=== PATIENT | male | born 1965 | race Caucasian/White ===

== ENCOUNTER 2024-01-01 05:04 | Emergency (ER) | payer OTHER, SELFPAY ==
[2024-01-01 05:05] VITALS: BP 147/96
[2024-01-01 05:23] VITALS: BMI 42.7
[2024-01-01] MEDS: NSS 1000 IV (05:38)
[2024-01-01] MEDS: TORADOL 30 MG IV (05:38)
[2024-01-01 05:41] LABS: % Basophils 0.4 % (0-2); % Eosinophils 0.9 % (0-6); % Immature Granulocytes 0.3 % (0-0.5); % Lymphocytes 18.3 % (20.5-51.1); % Monocytes 6.8 % (1.7-9.3); % Neutrophils 73.3 % (42.2-75.2); Absolute Basophils 0.1 10^3/uL (0-0.2); Absolute Eosinophils 0.1 10^3/uL (0-0.7); Absolute Lymphocytes 2.7 10^3/uL (1.2-3.4); Absolute Neutrophils 10.6 10^3/uL (1.4-6.5); Hematocrit 45.1 % (39.0-52.0); Hemoglobin 15.8 g/dL (13.0-18.0); Mean Corpuscular Hgb 28.2 pg (27.0-31.0); Mean Corpuscular Volume 80.5 fL (80.0-94.0); Mean Platelet Volume 10.7 fL (7.4-10.4); Nucleated Red Blood Cells % 0 % (-); Platelet Count 239 10^3/uL (130-400); Red Cell Dist. Width 13.9 % (11.5-14.5); White Blood Cell Count 14.5 10^3/uL (4.8-10.8)
[2024-01-01 05:42] LABS: Urine Albumin Negative (Neg - Trace); Urine Bilirubin Negative (Negative); Urine Character Clear (Clear); Urine Color Yellow; Urine Glucose Negative (Negative); Urine Ketone Negative (Negative); Urine Leukocyte Trace (Negative); Urine Nitrite Negative (Negative); Urine Occult Blood Negative (Negative); Urine Urobilinogen Negative (Neg - 1+)
[2024-01-01 05:58] LABS: ALT (SGPT) 25 U/L (0-50); AST (SGOT) 26 U/L (17-59); Albumin 4.7 g/dl (3.5-5.0); Alkaline Phosphatase 88 U/L (38-126); Blood Urea Nitrogen 16 mg/dl (9-20); Calcium 9.4 mg/dl (8.4-10.2); Carbon Dioxide 26 mmol/L (22-30); Chloride 103 mmol/L (98-107); Estimated Creatinine Clearance 111 ml/min; Glucose 108 mg/dl (70-99); Lipase 70 U/L (23-300); Potassium 3.6 mmol/L (3.5-5.1); Sodium 137 mmol/L (135-145); Total Bilirubin 0.7 mg/dl (0.2-1.3); Total Protein 7.2 g/dl (6.3-8.2); eGFR > 60.00
[2024-01-01 07:17] LABS: Urine Bacteria Few (Negative); Urine Squamous Cell 0-2 /LPF (Few); Urine White Cell 16-20 /HPF (0-5)
[2024-01-01 07:25] VITALS: BP 133/75
[2024-01-01] MEDS: DILAUDID 1 MG IV (07:32)
--- NOTE | 2024-01-01 07:57 | ED.GENMED ---
History of Present Illness
General
Chief Complaint: Flank Pain
Source: patient and spouse
Exam Limitations: none
Time Seen by Provider: 01/01/24 06:35
Travel History
Have you had any contact with someone who has COVID-19?: No
Do you have any symptoms of coronavirus? Fever > 100 degrees, chills, cough, shortness of breath, sore throat, loss of taste or smell, muscle aches, or headache?: No
History of Present Illness
History of Present Illness:
This is a 58yo male who presents with R flank pain. pt states that sx's started last night at 6pm. he states he is pretty sure he has a kidney stone. no fevers. No dysuria. No hematuria
Past History
Past History
ED Past Medical History: GERD and Other (Kidney stones, obstructive sleep apnea)
ED Past Surgical History: Urological
Patient has exhibited threatening behavior?: No
PSI?: No
Social History
Tobacco: Non-smoker
Alcohol: Occasional
Drug: None
Personal:
Living: with family
Employment: Employed
Family History
Family History: Other
Phy Exam
Physical Exam
Physical Exam:
CONSTITUTIONAL Patient alert and oriented to person, place and time. Well-appearing. Vital signs reviewed.
HEAD atraumatic, normocephalic.
EYES eyelids normal to inspection, Extraocular muscles intact, Conjunctiva normal, Sclera normal.
NECK normal range of motion, Trachea midline, no jugular venous distention.
RESPIRATORY CHEST No respiratory distress noted, Chest expansion equal
ABDOMEN abdomen nontender, Bowel sounds normal. No distention.
BACK normal inspection, no obvious deformities
UPPER EXTREMITY range of motion normal, Motor strength normal, no cyanosis, no edema.
LOWER EXTREMITY range of motion normal, Motor strength normal, no cyanosis, no edema.
NEURO Speech normal, No focal motor deficits, Tryon coma scale 15, Memory normal, Cranial Nerves intact to screening exam.
SKIN skin warm, dry, and normal in color.
Course
Orders/Labs/Results
Orders:
Orders
01/01/24 05:19
IV Insert/Care/Rem.- Treatment PRN
01/01/24 05:30
Complete Blood Count/With Diff Urgent
Comprehensive Metabolic Panel Urgent
Lipase Urgent
Urinalysis Reflex To Culture Urgent
Date Specimen was Collected: 01/01/24
Time Specimen was Collected: 05:19
Urine Microscopic Reflex Cult Urgent
Urine Culture Urgent
DINA Source: U
Specimen Description:
Date Specimen was Collected: 01/01/24
Time Specimen was Collected: 05:19
01/01/24 05:34
Ketorolac [Toradol] 30 mg .ROUTE .STK-MED ONE
01/01/24 05:35
Ketorolac [Toradol] 30 mg IV NOW STA
01/01/24 05:36
0.9% Sodium Chloride 1000 ml [Nss] 1,000 ml IV BOLUS
01/01/24 07:23
CT Abd/pel Without Iv Or Oral Stat
Comment:
Reason For Exam: R flank pain
HYDROmorphone [Dilaudid] 1 mg IV NOW STA
01/01/24 10:17
Cefuroxime Axetil [Ceftin] 500 mg PO NOW STA
Abnormal Lab Results
01/01/24
05:30
WBC 14.5 H 10^3/uL
(4.8-10.8)
MPV 10.7 H fL
(7.4-10.4)
Absolute Neuts (auto) 10.6 H 10^3/uL
(1.4-6.5)
Absolute Monos (auto) 1.0 H 10^3/uL
(0.1-0.6)
Lymphocytes % 18.3 L %
(20.5-51.1)
Glucose 108 H mg/dl
(70-99)
Leukocyte Esterase Rfl Trace A
(Negative)
Urine RBC 3-6 A /HPF
(0-2)
Urine WBC (Reflex) 16-20 A /HPF
(0-5)
Urine Bacteria (Reflex) Few A
(Negative)
01/01/24 05:30
01/01/24 05:30
Vital Signs
Initial and Last Documented VS:
Initial Vital Signs
Temp Pulse Resp BP Pulse Ox
98.1 F 115 18 147/96 96
01/01/24 05:05 01/01/24 05:05 01/01/24 05:05 01/01/24 05:05 01/01/24 05:05
Last Documented Vital Signs
Temp Pulse Resp BP Pulse Ox
98.1 F 79 20 129/85 99
01/01/24 05:05 01/01/24 09:00 01/01/24 09:00 01/01/24 09:00 01/01/24 09:00
MDM/Problems Addressed
MDM/Problems Addressed:
Renal colic, ureteral obstruction
*Radiology
Radiology exam reviewed: preliminary read by ED provider (Right-sided obstructing stone) and radiology read reviewed
*Pulse Oximetry
Patient hypoxic: no
*Critical Care Note
Total Time (30-74mins, 75-104mins- exclusive of procedures): Not Applicable
Data Reviewed
Source: patient and spouse
Patient Management
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
Escalation/DeEscalation of care consider admission/obs:
Case discussed urology feels that outpatient management is reasonable. Agrees with antibiotics. Patient was hoping to have procedure today as he has to travel on Tuesday. However, pain is controlled. He is afebrile. Creatinine is normal.
Will treat with antibiotics and outpatient follow-up with urology
ED Attending Note
-
Portions of this chart may have been created with voice recognition software.� Occasional wrong word or��sound alike� substitutions may have occurred due to the inherent limitations of voice recognition software.
Discharge Plan
Departure
Patient Disposition: Home (Routine Discharge)
Date of Disposition: 01/01/24
Time of Disposition: 10:19
Patient with high blood pressure during this ER visit?: No
Discharge Problem:
Kidney stone
Instructions: Kidney Stones (DC), How to Strain Your Urine, Narcotic Pain Medication
Prescriptions:
New
hydrocodone-acetaminophen 5-325 mg tablet
2 tab PO Q4H PRN (Reason: Pain) Qty: 15 0RF
cefuroxime axetil 500 mg tablet
500 mg PO Q12H 7 Days Qty: 14 0RF
tamsulosin [Flomax] 0.4 mg capsule
0.4 mg PO DAILY Qty: 30 0RF
No Action
metformin 500 mg Tablet
500 mg PO DAILY
amiloride-hydrochlorothiazide 5-50 mg Tablet
1 tab PO BID
cholecalciferol (vitamin D3) [Vitamin D3] 50 mcg (2,000 unit) Capsule
50 mcg PO DAILY
metformin 500 mg Tablet
1,000 mg PO QPM
metoprolol succinate 50 mg tablet extended release 24 hr
50 mg PO DAILY
potassium citrate 10 mEq (1,080 mg) tablet extended release
10 meq PO BID
allopurinol 300 mg tablet
300 mg PO DAILY
phenazopyridine [Pyridium] 100 mg tablet
100 mg PO TID Qty: 60 0RF
tramadol 50 mg tablet
50 mg PO Q8H PRN (Reason: pain) Qty: 30 0RF
tamsulosin 0.4 mg capsule
0.4 mg PO DAILY Qty: 30 0RF
cefuroxime axetil 500 mg tablet
500 mg PO BID Qty: 14 0RF
cefdinir 300 mg capsule
300 mg PO BID Qty: 13 0RF
Referrals:
Alvaro Moreno DO [Family Provider] -
Activity Restrictions/Additional Instructions:
Please see urology in follow-up in the next 3 days. Return for fevers, intractable vomiting, intractable pain or any other concerns.
Interventions
Interventions:
*Risk Screen - Suicide Last Done: 01/01/24 05:23
*General Assessment Last Done: 01/01/24 05:23
*Neglect/Abuse Screening Last Done: 01/01/24 05:23
ED- Fall Risk Assessment Last Done: 01/01/24 06:13
*ED COVID-19 Vaccine History Last Done: 01/01/24 05:23
LX-Zytiwd-Wbtfklpriw Assessment Last Done: 01/01/24 06:13
ED-Male Genitourinary Assessment Last Done: 01/01/24 06:13
[2024-01-01 09:00] VITALS: BP 129/85
[2024-01-01 10:00] VITALS: BP 134/76
[2024-01-01] MEDS: CEFTIN 500 MG PO (10:37)
== END 2024-01-01 10:42 | disposition home or self-care (01) ==
LOC: EMR 05:04
PROVIDERS: Student in an Organized Health Care Education/Training Program; EMERGENCY PHYSICIAN Emergency Medicine; FAMILY PHYSICIAN Family Medicine
DX: R10.9 Unspecified abdominal pain (principal); K21.9 Gastro-esophageal reflux disease without esophagitis; G47.33 Obstructive sleep apnea (adult) (pediatric); Z87.442 Personal history of urinary calculi
CPT/HCPCS: 99284; 96374; 96375; 96361; 74176; 80053; 81003; 81015; 83690; 85025; 87086

== ENCOUNTER 2024-01-13 06:23 | Day surgery (SDC) | payer OTHER, SELFPAY ==
[2024-01-13 14:10] VITALS: BP 141/79; BMI 41.4
[2024-01-13] MEDS: NORMOSOL-R 1000 IV (14:15)
[2024-01-13 14:20] LABS: Glucose - Point of Care 100 mg/dl (70-99)
[2024-01-13 14:34] VITALS: BMI 41.4
[2024-01-13] MEDS: Pyridium 200 MG PO (14:46)
[2024-01-13 16:10] VITALS: BP 133/75; BP 141/79
[2024-01-13 16:15] VITALS: BP 129/77
[2024-01-13 16:39] VITALS: BP 123/71
[2024-01-13] MEDS: DETROL LA 4 MG PO (16:54)
[2024-01-13 16:56] VITALS: BP 129/72
[2024-01-13 17:15] VITALS: BP 140/89
[2024-01-18 19:09] LABS: Stone Analysis Mass 52 mg
== END 2024-01-13 17:22 | disposition home or self-care (01) ==
LOC: SDS 06:23
PROVIDERS: ATTENDING PHYSICIAN Surgery
DX: C67.9 Malignant neoplasm of bladder, unspecified (principal); N13.2 Hydronephrosis with renal and ureteral calculous obstruction; N32.3 Diverticulum of bladder; Z87.442 Personal history of urinary calculi
CPT/HCPCS: 52356; 52234; 88307; 74018; 76000; 82365; 82962; 88341; 88342; 93005; A4300; C1758; C1769; C1894

== ENCOUNTER → 2024-01-24 08:39 | Outpatient (REF) | payer OTHER, SELFPAY | LOC: RAD 08:39 | PROVIDERS: ATTENDING PHYSICIAN Surgery; FAMILY PHYSICIAN Family Medicine | DX: C67.9 Malignant neoplasm of bladder, unspecified (principal) | CPT/HCPCS: 74178; Q9967 ==

== ENCOUNTER → 2024-02-03 06:20 | Day surgery (SDC) | payer OTHER, SELFPAY | LOC: GI 06:20 | PROVIDERS: ATTENDING PHYSICIAN Internal Medicine Gastroenterology | DX: Z12.11 Encounter for screening for malignant neoplasm of colon (principal); D12.3 Benign neoplasm of transverse colon; K64.8 Other hemorrhoids | CPT/HCPCS: 45385; 88305 ==

== ENCOUNTER → 2024-02-29 10:27 | Outpatient (REF) | payer OTHER, SELFPAY | LOC: RAD 10:27 | PROVIDERS: ATTENDING PHYSICIAN Surgery; FAMILY PHYSICIAN Family Medicine; REFERRING PHYSICIAN Physician Assistant Medical | DX: N26.1 Atrophy of kidney (terminal) (principal) | CPT/HCPCS: 78707; A9539 ==

== ENCOUNTER → 2024-09-01 08:46 | Outpatient (REF) | payer OTHER, SELFPAY | LOC: RCS 08:46 | PROVIDERS: ATTENDING PHYSICIAN Internal Medicine Cardiovascular Disease; FAMILY PHYSICIAN Family Medicine | DX: I49.3 Ventricular premature depolarization (principal) | CPT/HCPCS: 93225; 93226 ==

== ENCOUNTER → 2024-09-17 07:37 | Outpatient (REF) | payer OTHER, SELFPAY | LOC: RAD 07:37 | PROVIDERS: ATTENDING PHYSICIAN Surgery | DX: N20.0 Calculus of kidney (principal) | CPT/HCPCS: 74018 ==

== ENCOUNTER → 2024-10-23 08:19 | Outpatient (REF) | payer OTHER, SELFPAY | LOC: HWRCS 08:19 | PROVIDERS: ATTENDING PHYSICIAN Internal Medicine Cardiovascular Disease; FAMILY PHYSICIAN Family Medicine | DX: I49.3 Ventricular premature depolarization (principal); I10 Essential (primary) hypertension | CPT/HCPCS: 93306 ==

== ENCOUNTER → 2024-10-30 07:48 | Outpatient (REF) | payer OTHER, SELFPAY | LOC: HWRAD 07:48 | PROVIDERS: ATTENDING PHYSICIAN Physician Assistant; FAMILY PHYSICIAN Family Medicine | DX: N20.0 Calculus of kidney (principal) | CPT/HCPCS: 76775 ==

== ENCOUNTER → 2025-02-25 08:35 | Outpatient (REF) | payer OTHER, SELFPAY | LOC: RAD 08:35 | PROVIDERS: ATTENDING PHYSICIAN Surgery; FAMILY PHYSICIAN Family Medicine; OTHER PHYSICIAN Surgery | DX: C67.0 Malignant neoplasm of trigone of bladder (principal) | CPT/HCPCS: 74178; Q9967 ==

== ENCOUNTER 2025-06-14 12:34 | Inpatient (IN) | payer OTHER, SELFPAY ==
[2025-06-14] VITALS (17 sets, daily range): BP systolic 111–147; BP diastolic 67–92
[2025-06-14 08:02] LABS: Urine Character Clear (Clear)
[2025-06-14 08:39] LABS: Urine Squamous Cell 16-20 /LPF (Few)
[2025-06-14 08:42] LABS: Urine White Cell 30-40 /HPF (0-5)
--- NOTE | 2025-06-14 09:01 | ED.GENMED ---
History of Present Illness
<Rolanda Cho MD, Resident - Last Filed: 06/14/25 10:51>
General
Chief Complaint: Flank Pain
Source: patient
Time Seen by Provider: 06/14/25 08:48
History of Present Illness
History of Present Illness:
Mr. Stewart is a 59-year-old male with bladder cancer (followed at [facility]), hypertension, prediabetes, and history of numerous obstructive renal stones s/p multiple stents and lithotripsies (follows with Dr. Zavala) who presents with 18 hours of
04/25 right-sided flank and back pain. Him and his were at the [facility] for vacation when he developed right-sided flank pain around 3 PM yesterday. He states is the same pain that he had each time he has a renal stone. Of note, CT A/P from February
2024 showed bilateral nonobstructing renal calculi measuring up to 5 mm in the superior pole of the right kidney and 2 mm in the inferior pole of the left kidney. Mr. Stewart has stayed well-hydrated during this time and taken some tramadol for his
pain without relief. He denies nausea/vomiting, fevers, chills, urinary symptoms (hematuria, dysuria, incontinence, obstruction), or any trauma to the area. He also notes that his right kidney function is severely diminished (about 25%) given
multiple stents and damage to that kidney from his past medical history.
<Segun Adan, DO - Last Filed: 06/14/25 13:32>
General
Exam Limitations: none
Nursing documentation reviewed up to this point in time: agreed with
Past History
<Rolanda Cho MD, Resident - Last Filed: 06/14/25 10:51>
Past History
ED Past Medical History: GERD and Other (Kidney stones, obstructive sleep apnea)
ED Past Surgical History: Urological
Patient has exhibited threatening behavior?: No
PSI?: No
Social History
Tobacco: Non-smoker
Alcohol: Occasional
Drug: None
Personal:
Living: with family
Employment: Employed
Family History
Family History: Other
Phy Exam
<Rolanda Cho MD, Resident - Last Filed: 06/14/25 10:51>
General Physical Exam
General Presentation: well appearing and mild distress
General Skin: warm and dry
General Habitus: normal
General Mental: alert
ENT Exam
ENT Exam: EOMI
Cardiovascular Exam
Cardiovascular Exam: regular rate/rhythm and no edema
Pulmonary Exam
Pulmonary Exam: lungs clear and no respiratory distress
Gastrointestinal Exam
Gastrointestinal Exam: normal bowel sounds, non tender, soft, non distended and cva tenderness (Right-sided)
Skin Exam
Skin Exam: normal color and warm/dry
Course
<Rolanda Cho MD, Resident - Last Filed: 06/14/25 10:51>
Orders/Labs/Results
Orders:
Orders
06/14/25 07:31
Urinalysis Reflex To Culture Urgent
Date Specimen was Collected: 06/14/25
Time Specimen was Collected: 07:29
Urine Microscopic Reflex Cult Urgent
Urine Culture Urgent
DINA Source: U
Specimen Description:
Date Specimen was Collected: 06/14/25
Time Specimen was Collected: 07:29
06/14/25 09:14
HYDROmorphone [Dilaudid] 1 mg IV NOW STA
Ondansetron Injectable [Zofran] 4 mg IV NOW STA
06/14/25 09:15
CT Abd/pel Without Iv Or Oral Urgent
Comment:
Reason For Exam: right sided flank pain
06/14/25 09:16
0.9% Sodium Chloride 500 ml [Nss] 500 ml IV BOLUS
06/14/25 09:45
Complete Blood Count/With Diff Urgent
Comprehensive Metabolic Panel Urgent
Glycohemoglobin (HgbA1c) Urgent
06/14/25 Lunch
NPO
Allow oral meds: Yes
Allow clear liquids: No
06/14/25 10:06
Ondansetron Injectable [Zofran] 4 mg IV NOW STA
06/14/25 11:34
HYDROmorphone [Dilaudid] 1 mg IV NOW STA
06/14/25 12:00
CefTRIAXone [Rocephin] 1,000 mg IV Q24H
06/14/25 12:07
UROLOGY CONSULT Routine
Consulting Provider: Attila Kan
Was physician already notified: Yes
06/14/25 12:08
Admit/Transfer Patient As Directed
Co-Sign Provider:
Level of Care: Inpatient admission
Assign to:: Telemetry
Physician / Group: maxine lovelace
Diagnosis: UTI,right flank pain with right ureteralvesicle obstruction
Reason for Telemetry: Arrhythmia
Date to Stop Telemetry: 06/17/25
Time to Stop Telemetry: 11:00
Reason for Hospitalization: UTI,right flank pain with right ureteralvesicle obstruction
Expected length of stay greater than two midnights?: Yes
ELOS- Estimated Length of Stay in days: 3
I certify the patient meets the requirements for IP care: Yes
Nursing to Place Non Medication Order As Directed
Physician Order: NOTIFY MD WHEN MED REC DONE
Above order entered?: Yes
06/14/25 12:14
PRN Pain Medication Management As Directed
May give lesser potent ordered pain med per pt: Yes
preference::
Protocol:: Medication orders for pain may be administered in a
manner that supports deferring to patient preference
when the pt is:
- Requesting an ordered lesser potent pain medication.
Least to most potent pain medications are defined
as: acetaminophen < NSAID < tramadol < opioids
(morphine, oxycodone, hydromorphone).
- Requesting a lesser dose of the same medication IF
ORDERED.
- Requesting a less intrusive route of administration
if both routes are prescribed by the provider (PO <
IV).
06/14/25 12:15
Code Status As Directed
Resuscitation Status: Full Code
06/14/25 12:18
Add On- LAB Routine
Tests Added?: a1c
EKG [Electrocardiogram (*1)] Urgent
Reason for Study: PreOp
Dextrose 50%-Water [Dextrose 50% Syringe] 12.5 grams IV [id number] PRN
Glucagon [GlucaGen] 1 mg IM PRN PRN
06/14/25 12:20
Trimethobenzamide [Tigan] 200 mg IM NOW STA
Bedside Glucose Monitoring As Directed
Frequency: AC&HS
Additional Instructions:: Change to q6h if pt on TPN, tube feeding or not eating
06/14/25 16:30
Insulin Aspart Corrective Low [Novolog Flexpen-Low Resistance] See Protocol SC AC
06/17/25 11:00
DC Protocol for Telemetry ONCE
Abnormal Lab Results
06/14/25 06/14/25
07:31 09:45
Absolute Neuts (auto) 7.2 H 10^3/uL
(1.4-6.5)
Lymphocytes % 18.6 L %
(20.5-51.1)
Glucose 105 H mg/dl
(70-99)
Ur Occult Blood Reflex 3+ A
(Negative)
Leukocyte Esterase Rfl 3+ A
(Negative)
Urine RBC 3-6 A /HPF
(0-2)
Urine WBC (Reflex) 30-40 A /HPF
(0-5)
Urine Bacteria (Reflex) Many A
(Negative)
Urine Albumin (Reflex) 2+ A
(Neg - Trace)
06/14/25 09:45
06/14/25 09:45
Vital Signs
Initial and Last Documented VS:
Initial Vital Signs
Temp Pulse Resp BP Pulse Ox
98.0 F 61 18 144/92 98
06/14/25 07:23 06/14/25 07:23 06/14/25 07:23 06/14/25 07:23 06/14/25 07:23
Last Documented Vital Signs
Temp Pulse Resp BP Pulse Ox
98.0 F 61 18 144/92 98
06/14/25 07:23 06/14/25 07:23 06/14/25 07:23 06/14/25 07:23 06/14/25 09:03
<Segun Adan, DO - Last Filed: 06/14/25 13:32>
Orders/Labs/Results
Orders:
Orders
06/14/25 07:31
Urinalysis Reflex To Culture Urgent
Date Specimen was Collected: 06/14/25
Time Specimen was Collected: 07:29
Urine Microscopic Reflex Cult Urgent
Urine Culture Urgent
DINA Source: U
Specimen Description:
Date Specimen was Collected: 06/14/25
Time Specimen was Collected: 07:29
06/14/25 09:14
HYDROmorphone [Dilaudid] 1 mg IV NOW STA
Ondansetron Injectable [Zofran] 4 mg IV NOW STA
06/14/25 09:15
CT Abd/pel Without Iv Or Oral Urgent
Comment:
Reason For Exam: right sided flank pain
06/14/25 09:16
0.9% Sodium Chloride 500 ml [Nss] 500 ml IV BOLUS
06/14/25 09:45
Complete Blood Count/With Diff Urgent
Comprehensive Metabolic Panel Urgent
Glycohemoglobin (HgbA1c) Urgent
06/14/25 Lunch
NPO
Allow oral meds: Yes
Allow clear liquids: No
06/14/25 10:06
Ondansetron Injectable [Zofran] 4 mg IV NOW STA
06/14/25 11:34
HYDROmorphone [Dilaudid] 1 mg IV NOW STA
06/14/25 12:00
CefTRIAXone [Rocephin] 1,000 mg IV Q24H
06/14/25 12:07
UROLOGY CONSULT Routine
Consulting Provider: Attila Kan
Was physician already notified: Yes
06/14/25 12:08
Admit/Transfer Patient As Directed
Co-Sign Provider:
Level of Care: Inpatient admission
Assign to:: Telemetry
Physician / Group: maxine lovelace
Diagnosis: UTI,right flank pain with right ureteralvesicle obstruction
Reason for Telemetry: Arrhythmia
Date to Stop Telemetry: 06/17/25
Time to Stop Telemetry: 11:00
Reason for Hospitalization: UTI,right flank pain with right ureteralvesicle obstruction
Expected length of stay greater than two midnights?: Yes
ELOS- Estimated Length of Stay in days: 3
I certify the patient meets the requirements for IP care: Yes
Nursing to Place Non Medication Order As Directed
Physician Order: NOTIFY MD WHEN MED REC DONE
Above order entered?: Yes
06/14/25 12:14
PRN Pain Medication Management As Directed
May give lesser potent ordered pain med per pt: Yes
preference::
Protocol:: Medication orders for pain may be administered in a
manner that supports deferring to patient preference
when the pt is:
- Requesting an ordered lesser potent pain medication.
Least to most potent pain medications are defined
as: acetaminophen < NSAID < tramadol < opioids
(morphine, oxycodone, hydromorphone).
- Requesting a lesser dose of the same medication IF
ORDERED.
- Requesting a less intrusive route of administration
if both routes are prescribed by the provider (PO <
IV).
06/14/25 12:15
Code Status As Directed
Resuscitation Status: Full Code
06/14/25 12:18
Add On- LAB Routine
Tests Added?: a1c
EKG [Electrocardiogram (*1)] Urgent
Reason for Study: PreOp
Dextrose 50%-Water [Dextrose 50% Syringe] 12.5 grams IV [id number] PRN
Glucagon [GlucaGen] 1 mg IM PRN PRN
06/14/25 12:20
Trimethobenzamide [Tigan] 200 mg IM NOW STA
Bedside Glucose Monitoring As Directed
Frequency: AC&HS
Additional Instructions:: Change to q6h if pt on TPN, tube feeding or not eating
06/14/25 16:30
Insulin Aspart Corrective Low [Novolog Flexpen-Low Resistance] See Protocol SC AC
06/17/25 11:00
DC Protocol for Telemetry ONCE
Abnormal Lab Results
06/14/25 06/14/25
07:31 09:45
Absolute Neuts (auto) 7.2 H 10^3/uL
(1.4-6.5)
Lymphocytes % 18.6 L %
(20.5-51.1)
Glucose 105 H mg/dl
(70-99)
Ur Occult Blood Reflex 3+ A
(Negative)
Leukocyte Esterase Rfl 3+ A
(Negative)
Urine RBC 3-6 A /HPF
(0-2)
Urine WBC (Reflex) 30-40 A /HPF
(0-5)
Urine Bacteria (Reflex) Many A
(Negative)
Urine Albumin (Reflex) 2+ A
(Neg - Trace)
06/14/25 09:45
06/14/25 09:45
Vital Signs
Initial and Last Documented VS:
Initial Vital Signs
Temp Pulse Resp BP Pulse Ox
98.0 F 61 18 144/92 98
06/14/25 07:23 06/14/25 07:23 06/14/25 07:23 06/14/25 07:23 06/14/25 07:23
Last Documented Vital Signs
Temp Pulse Resp BP Pulse Ox
98.0 F 61 18 144/92 98
06/14/25 07:23 06/14/25 07:23 06/14/25 07:23 06/14/25 07:23 06/14/25 09:03
<Rolanda Cho MD, Resident - Last Filed: 06/14/25 10:51>
MDM/Problems Addressed
MDM/Problems Addressed:
Mr. Stewart is a 59-year-old male with bladder cancer (followed at [facility]), hypertension, prediabetes, and history of numerous obstructive renal stones s/p multiple stents and lithotripsies (follows with Dr. Zavala) who presents with 18 hours of
710 right-sided flank and back pain.
#Right-sided flank and back pain
#History of obstructive renal stones
02/25/2025 CT A/P showed bilateral nonobstructing renal calculi measuring up to 5 mm in the superior pole of the right kidney and 2 mm in the inferior pole the left kidney. His current pain is most likely from a obstructing renal calculi, likely the
one that measured up to 5 mm in which was previously nonobstructing.
- CT A/P:
Right lateral urinary bladder wall thickening, confluent with a right lateral pelvic sidewall mass. Possible considerations include infection, inflammation, or neoplasm. Secondary obstruction of the right ureter at the ureterovesical junction.
Bilateral nonobstructing renal calculi.
- UA (not clean-catch) with 3+ occult blood, leukocyte esterase
--IV ceftriaxone 1000 mg daily
- CBC and CMP WNL
- IV Dilaudid 1 mg once
- IV Zofran 4 mg x 2
- NSS 1 L bolus once
Based on CT A/P, he will need urology consult and possible stenting. We will admit to hospitalist team for further management.
<Rolanda Cho MD, Resident - Last Filed: 06/14/25 10:51>
*Pulse Oximetry
SaO2: 98
Oxygen Mode of Delivery: Room air
Patient hypoxic: no
*Critical Care Note
Total Time (30-74mins, 75-104mins- exclusive of procedures): Not Applicable
ED Attending Note
<Rolanda Cho MD, Resident - Last Filed: 06/14/25 10:51>
-
Portions of this chart may have been created with voice recognition software.� Occasional wrong word or��sound alike� substitutions may have occurred due to the inherent limitations of voice recognition software.
<Segun Adan, - Last Filed: 06/14/25 13:32>
ED Attending Note
Patient seen and examined by attending physician: Yes
I performed a history and physical exam of patient and discussed management with resident, I reviewed resident's note and agree with documented findings and plan of care.: Yes
ED Attending Note:
I have reviewed and agree with history and treatment plan by Rolanda Cho MD. My exam revealed 59-year-old male in mild to moderate discomfort. Mild CVA tenderness on right. Abdomen soft nondistended. CT scan revealing right hydronephrosis likely
from bladder mass, urinalysis concerning for UTI. IV ceftriaxone ordered. Urology evaluated patient in the ED. Admit to hospitalist.
Discharge Plan
Departure
Patient Disposition: Admit
Date of Disposition: 06/14/25
Time of Disposition: 10:48
Admit to: Med/Surg
Presentation/result/management discussed w/ accepting MD/DO: Hospitalist
Patient with high blood pressure during this ER visit?: Yes
Condition: Good
Discharge Problem:
Obstruction of right ureteropelvic junction (UPJ), Acute UTI
Interventions
Interventions:
*Risk Screen - Suicide Last Done: 06/14/25 07:23
*Neglect/Abuse Screening Last Done: 06/14/25 07:23
*ED COVID-19 Vaccine History Last Done: 06/14/25 07:23
[2025-06-14] MEDS: NSS 500 IV (09:45)
[2025-06-14] MEDS: ZOFRAN 4 MG IV ×3 (09:46→21:33)
[2025-06-14] MEDS: DILAUDID 1 MG IV ×2 (09:46→11:38)
[2025-06-14 09:56] LABS: Hematocrit 45.6 % (39.0-52.0); Hemoglobin 15.7 g/dL (13.0-18.0); Mean Corp Hgb Conc. 34.4 g/dL (33.0-37.0); Mean Corpuscular Volume 82.9 fL (80.0-94.0); Nucleated Red Blood Cells % 0 % (-); Platelet Count 202 10^3/uL (130-400); Red Cell Dist. Width 14.4 % (11.5-14.5)
[2025-06-14 10:25] LABS: ALT (SGPT) 16 U/L (0-50); AST (SGOT) 21 U/L (17-59); Albumin 4.8 g/dl (3.5-5.0); Alkaline Phosphatase 66 U/L (38-126); Blood Urea Nitrogen 9 mg/dl (9-20); Calcium 10.0 mg/dl (8.4-10.2); Carbon Dioxide 29 mmol/L (22-30); Chloride 100 mmol/L (98-107); Glucose 105 mg/dl (70-99); Potassium 3.5 mmol/L (3.5-5.1); Sodium 138 mmol/L (135-145); Total Protein 7.2 g/dl (6.3-8.2); eGFR > 60.00
[2025-06-14] MEDS: ROCEPHIN 1000 MG IV (11:26)
--- NOTE | 2025-06-14 12:18 | HPS.HSE ---
Family Physician
-
Family Physician: Alvaro Moreno
Chief Complaint
-
right flank pain
History of Present Illness
59-year-old male with history of bladder cancer status post surgery at [place] now on immunotherapy, hypertension, prediabetes, multiple obstructive renal stones status post multiple stents and lithotripsies came to the hospital with the
right-sided flank and back pain. Patient denies any fever/chills. Denies any hematuria. Denies any chest pain, shortness of breath.
Medical History
Past Medical History
Past Medical History: Reports Cancer (Bladder), GERD, HTN and Hypercholesterolemia
Past Surgical History: Reports Urological
Social History
Tobacco: Non-smoker
Alcohol: Occasional
Family History
Family History: Not pertinent
Allergies / Home Medications
Allergies reflects when Allergies were last updated in [facility].
Home Medications with original date entered in [facility]
Allergy/Medication List:
Allergies
Allergy/AdvReac Type Severity Reaction Status Date / Time
doxycycline Allergy Unknown Verified 06/14/25 07:27
Home Medications
allopurinol 300 mg tablet 300 mg PO HS 11/25/22
amiloride 5 mg-hydrochlorothiazide 50 mg tablet 1 tab PO BID 11/25/22
metformin 500 mg tablet 1,000 mg PO QPM 11/25/22
metformin 500 mg tablet 500 mg PO DAILY 11/25/22
metoprolol succinate 50 mg tablet,extended release 24 hr 50 mg PO HS 11/25/22
tirzepatide (weight loss) 7.5 mg/0.5 mL subcutaneous pen injector (Zepbound) 7.5 mg SC WEEKLY 06/14/25
Review of Systems
-
History Source: Patient
A 12 point ROS was completed and negative except as noted: Yes
: Reports Flank Pain
Physical Exam
Vital Signs
Vital Signs
Temp Pulse Resp BP Pulse Ox
98.0 F 61 18 144/92 98
06/14/25 07:23 06/14/25 07:23 06/14/25 07:23 06/14/25 07:23 06/14/25 09:03
Physical Exam
General: Well Nourished and No Apparent Distress
HEENT: NormoCephalic and Moist mucous membranes; No Anicteric
Respiratory: Clear and Non Labored Respirations; No Wheezes
Cardiac: S1/S2 and Regular Rhythm
Breast: Deferred by me
GI: Soft, Non Tender and Non Distended
Rectal: Deferred by Provider
Genito-urinary: No Hernandez
Musculoskeletal: No Edema
Neuro: Awake, Alert, Oriented and AO x 3
Psych: Calm and Intact Judgment/Insight
Laboratory Results
-
06/14/25 09:45
06/14/25 09:45
Laboratory Results
Total Bilirubin 0.8 mg/dl (0.2-1.3) 06/14/25 09:45
AST 21 U/L (17-59) 06/14/25 09:45
ALT 16 U/L (0-50) 06/14/25 09:45
Alkaline Phosphatase 66 U/L (38-126) 06/14/25 09:45
Impression/Plan
-
Right flank and back pain secondary to right lateral urinary bladder wall thickening, confluent with right lateral pelvic sidewall mass.
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
CT scan noted, per patient he did had pelvic sidewall mass which was attributed to hematoma after his bladder wall surgery. Discussed with radiology and they believe that has increased in size.
urology consulted, n.p.o. for now and plan for OR today. consider oncology evaluation if sidewall mass is new
follows up with Dr Taylor at [facility]
UA suggestive of UTI, continue with ceftriaxone
Gentle hydration
antiemetic
Diabetes mellitus
Hold metformin for now
Sliding scale
Check A1c
History of gout
History of hypertension
Metoprolol
DVT prophylaxis
SCDs for now
Full code
I spent a total of 76 minutes with the patient or on the floor. More than 50% of this time involved counseling and coordination of care.
[2025-06-14] MEDS: TIGAN 200 MG IM (12:34)
--- NOTE | 2025-06-14 14:19 | CM ---
Met with patient and his at the bedside in the ED
Pharmacy verified: [facility] @ [address]
Lives w/ ; multilevel home; no steps to enter; 12 steps to 2nd floor bathrooms; half bath on 1st floor; railings on stairs
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
NO SNF or Home Health utilization history
will provide transport home
Plan: Anticipate discharge to home when medically stable; Case Management will monitor for needs/services
[2025-06-14 15:46] LABS: INR 1.05; PT 14.1 Sec (11.4-14.6)
[2025-06-14 15:47] LABS: APTT 25.6 Sec (23.4-35.0)
--- NOTE | 2025-06-14 16:12 | PTCARENOTE ---
Pt arrived to [facility] on a stretcher and walked from stretcher to bed w/o incident. Pt oriented to room and call harper. CHG wipes and new gown applied. Knee high SCDs applied to b/l legs. OR called for report. Report given to IMAGING SCIENCE PROFESSOREmilee YOUNG. Pt voided.
Transported to OR at 1600. Care ongoing.
--- NOTE | 2025-06-14 16:38 | CONS.URO ---
Consultation
-
Date/Time Consultation Performed: 06/14/25 1500
Performing Provider: Peffer
Reason for Consultation: Hydronephrosis
Medical History
History of Present Illness
59M with complex urologic history due to kidney stones and bladder cancer
Known to Dr. Zavala and Dr. Taylor, and Dr. Lauren at [facility]
History of HG Ta bladder cancer in a R wall diverticulum s/p partial cystectomy around 07/2024
Also with hx of b/l renal and ureteral stones with multiple procedures in the past
Most recently had a cystoscopy with Dr. Taylor in March which was negative for recurrence
02/[address] scan that showed a small R bladder wall mass which was suspected to be hematoma or healing post diverticulectomy/partial cystectomy
CT at that time showed some small R renal stones as well, no hydro
He presented today with 24hrs of worsening R flank pain
No sepsis but UA pos for blood and LE. He was started on Rocephin
CT showed R hydronephrosis to level of the bladder and the R pelvic wall mass/lesion which has grown slightly in size
No stones seen
Past Medical History
Past Medical History: Other (Reports Cancer (Bladder), kidney stones, GERD, HTN and Hypercholesterolemia)
Past Surgical History: Urological
Social History
Tobacco: Non-smoker
Alcohol: Occasional
Drug: None
Family History
Family History: Reviewed & Not Pertinent
Allergies/Home Medications
Allergies
Allergy/AdvReac Type Severity Reaction Status Date / Time
doxycycline Allergy Unknown Verified 06/14/25 07:27
Home Medications
�Medication �Instructions �Recorded �Confirmed �Type
allopurinol 300 mg tablet 300 mg PO HS 11/25/22 06/14/25 History
amiloride 5 mg-hydrochlorothiazide 1 tab PO BID 11/25/22 06/14/25 History
50 mg tablet
metformin 500 mg tablet 1,000 mg PO QPM 11/25/22 06/14/25 History
metformin 500 mg tablet 500 mg PO DAILY 11/25/22 06/14/25 History
metoprolol succinate 50 mg 50 mg PO HS 11/25/22 06/14/25 History
tablet,extended release 24 hr
tirzepatide (weight loss) 7.5 7.5 mg SC WEEKLY 06/14/25 06/14/25 History
mg/0.5 mL subcutaneous pen
injector (Zepbound)
Physical Exam
Vital Signs
Vital Signs
Temp Pulse Resp BP Pulse Ox
98.2 F 96 18 147/84 98
06/14/25 16:00 06/14/25 16:00 06/14/25 16:00 06/14/25 16:00 06/14/25 16:00
Lab / Testing Results
Laboratory Results
06/14/25 09:45
06/14/25 09:45
Physical Exam
General: Well Developed, Well Nourished and No Apparent Distress
GI: Soft and Non Tender
Genito-urinary: No Costovertebral Tend
Neuro: AO x 3
Psych: Calm and Intact Judgement
Assessment / Plan
-
59M hx of recurrent kidney stones, history of bladder cancer s/p open partial cystectomy with previously known R pelvic wall/bladder mass
s/p negative cystoscopy 03/2025
Presenting with R flank pain and hydroureteronephrosis to level of the bladder at the site of R wall mass
- OR today for cystoscopy, possible bladder biopsy or TURBT, R ureteroscopy, possible biopsy, R ureteral stent placement
- Continue ceftriaxone pending culture
- May need further workup of R pelvic sidewall mass with Dr. Taylor at [facility] if this is not visible cystoscopically
--- NOTE | 2025-06-14 18:16 | W.IMMPOSTOP ---
Surgical Immed Post Op Note
-
Primary Surgeon: Jeromefer
Assisting Surgeon: -
Pre-op Diagnosis: R ureteral obstruction, perivesical mass
Post-op Diagnosis: R ureteral obstruction, bladder lesion, perivesical collection
Procedure Performed: Cystoscopy, R retrograde pyelogram, R ureteroscopy, R ureteral stent placement, Transurethral resection of bladder tumor, transvesical drainage of perivesical collection
Anesthesia Type: general
Specimen / Cultures: R wall bladder lesion
Estimated Blood Loss: 2cc
Complications: none
Operative Findings: inflammatory lesion of R bladder wall causing extrinsic compression of R distal ureter
Unroofing of R bladder wall lesion performed with release of necrotic material
Inflammatory and papillary changes within bladder wall lesion, unable to r/o recurrent urothelial carcinoma
Ureteral stent placed
[2025-06-14] MEDS: NSS 1000 IV (19:14)
[2025-06-14 19:20] LABS: Glucose - Point of Care 103 mg/dl (70-99)
[2025-06-14] MEDS: ORETIC 50 MG PO (20:19)
[2025-06-14] MEDS: MIDAMOR 5 MG PO (20:20)
[2025-06-14 21:18] LABS: Glucose - Point of Care 122 mg/dl (70-99)
[2025-06-14] MEDS: TOPROL XL 50 MG PO (22:24)
[2025-06-14] MEDS: ZYLOPRIM 300 MG PO (22:24)
[2025-06-14] MEDS: TYLENOL 650 MG PO (22:24)
[2025-06-15 03:00] VITALS: BP 122/83
[2025-06-15] MEDS: TYLENOL 650 MG PO (05:41)
[2025-06-15 06:00] VITALS: BMI 33.7
[2025-06-15 07:10] VITALS: BP 130/80
[2025-06-15 07:45] LABS: Hematocrit 43.3 % (39.0-52.0); Hemoglobin 14.6 g/dL (13.0-18.0); Mean Corp Hgb Conc. 33.7 g/dL (33.0-37.0); Mean Corpuscular Volume 83.0 fL (80.0-94.0); Nucleated Red Blood Cells % 0 % (-); Platelet Count 235 10^3/uL (130-400); Red Cell Dist. Width 14.4 % (11.5-14.5)
[2025-06-15] MEDS: NSS 1000 IV (08:46)
[2025-06-15] MEDS: ORETIC 50 MG PO (08:48)
[2025-06-15] MEDS: MIDAMOR 5 MG PO (08:49)
[2025-06-15 08:54] LABS: Glycohemoglobin (HgbA1c) 5.6 % (4.0-5.6)
[2025-06-15 09:01] LABS: Glucose - Point of Care 109 mg/dl (70-99)
[2025-06-15 11:05] VITALS: BP 124/76
--- NOTE | 2025-06-15 11:53 | W.PN.HOSP.TC ---
Addendum entered and electronically signed by Jose Ramon Duffy MD 06/15/25 14:31:
Discussed with urology. No need for further antibiotics. Discharge today with Hernandez
Time of discharge 36 minutes
Original Note:
Today's Communication/Plan
-
Monitor vital signs see plan
Antibiotic
Currently with Hernandez catheter
Possible discharge today if okay with urology
Assessment / Plan
Assessment / Plan
General: Well Nourished and No Apparent Distress
HEENT: NormoCephalic and Moist mucous membranes; No Anicteric
Respiratory: Clear and Non Labored Respirations; No Wheezes
Cardiac: S1/S2 and Regular Rhythm
GI: Soft, Non Tender and Non Distended
Genito-urinary: Hernandez
Musculoskeletal: No Edema
Neuro: Awake, Alert, Oriented and AO x 3
Psych: Calm and Intact Judgment/Insight
Right flank and back pain secondary to right lateral urinary bladder wall thickening, confluent with right lateral pelvic sidewall mass.
Papillary bladder tumors within right bladder wall diverticulum s/p surgery at [facility], now on bcg immunotherapy
CT scan noted, per patient he did had pelvic sidewall mass which was attributed to hematoma after his bladder wall surgery. Discussed with radiology and they believe that has increased in size.
Status post cystoscopy with transurethral resection of granulation tissue, transvesical drainage of right bladder wall perivesical collection. Right ureteral stent placement.
follows up with Dr Taylor at [facility]
UA suggestive of UTI, continue with ceftriaxone. Urine culture. P.o. antibiotics on discharge
antiemetic
Currently with Hernandez catheter
Diabetes mellitus
Hold metformin for now
Sliding scale
A1c 5.6
History of gout
History of hypertension
Metoprolol
DVT prophylaxis
SCDs for now
Full code
Anticipated Discharge: Today
Subjective/Interval History
-
Date of Service: June 15, 2025
Denies pain
Objective Data
-
Labs:
Laboratory Results
06/15/25
06:16
WBC 7.9
Hgb 14.6
Hct 43.3
Plt Count 235
Vital Signs:
Vital Signs
Temp Pulse Resp BP Pulse Ox
98.3 F 70 16 124/76 96
06/15/25 11:05 06/15/25 11:05 06/15/25 11:05 06/15/25 11:05 06/15/25 11:05
I&O
06/14/25 06/15/25 06/16/25
06:59 06:59 06:59
Intake Total 1800 / 1800
Output Total 2000 / 2000 350 / 350
Balance -200 / -200 -350 / -350
[2025-06-15 12:16] LABS: Glucose - Point of Care 118 mg/dl (70-99)
[2025-06-15] MEDS: ROCEPHIN 1000 MG IV (12:21)
--- NOTE | 2025-06-15 12:47 | W.PN.URO.CBU ---
Today's Communication / Plan
-
Discharge with mattson
Assessment / Plan
-
59M hx of recurrent kidney stones, history of bladder cancer s/p open partial cystectomy with previously known R pelvic wall/bladder mass
s/p negative cystoscopy 03/2025
Presenting with R flank pain and hydroureteronephrosis to level of the bladder at the site of R wall mass
s/p OR 06/14 for cysto, ureteroscopy, R ureteral stent, transurethral resection of bladder lesion and drainage of perivesical collection
- Okay to stop antibiotic
- Discharge home with mattson and stent in place
- Outpatient follow up with Dr. Zavala/Brandon for next steps in management pending pathology
Diagnosis
-
Date of Service: June 15, 2025
-
Patient Diagnosis:
Bladder cancer
R bladder wall lesion
R ureteral obstruction
Subjective
-
no pain
no issues overnight
Objective
-
Vital Signs
Temp Pulse Resp BP Pulse Ox
98.3 F 70 16 124/76 96
06/15/25 11:05 06/15/25 11:05 06/15/25 11:05 06/15/25 11:05 06/15/25 11:05
Intake and Output
06/14/25 06/15/25 06/16/25
06:59 06:59 06:59
Intake Total 1800 / 1800
Output Total 2000 / 2000 350 / 350
Balance -200 / -200 -350 / -350
Intake:
Oral fluids 960 / 960
IV fluids (Total) 840 / 840
Output:
Urine, Mattson 250 / 250 350 / 350
Urine, Voided 1750 / 1750
Other:
Number of approximated MODERATE 1
amounts of urine
Laboratory Results
06/15/25 06:16
06/14/25 09:45
Physical Exam
-
General - well developed, well nourished, no acute distress
Chest - clear
Abdomen - soft, non-tender
Mattson in place, pink urine
--- NOTE | 2025-06-15 14:28 | W.DCSUMMARY ---
Discharge Summary
Discharge Data
Date of Admission: 06/14/25
Date of Discharge: 06/15/25
-
Pending Results: Yes
Hospital Course
59-year-old male with past medical history of diabetes mellitus, gout, hypertension, nephrolithiasis, bladder cancer status post partial cystectomy came to the hospital with right flank pain. CT scan was consistent with right-sided hydronephrosis
to the level of bladder and right pelvic wall mass/lesion. Patient was seen by urology and was taken for cystoscopy, ureteroscopy. In the OR patient got right ureteral stent along with transurethral resection of bladder lesion and drainage of
perivesical collection. Urology recommended patient to follow-up closely with them and his oncologist at [facility]. Pathology was pending prior to discharge. Patient also got Hernandez catheter. Patient urine culture did not warrant any
treatment per urology recommendation. Once his symptoms continue to improve post OR, he was then discharged home with instructions to follow-up closely with all his physicians outpatient.
Discharge Plan
-
Patient Disposition: Home (Routine Discharge)
Discharge Diagnosis/Procedures: Right hydroureteronephrosis to the level of bladder at the site of right wall mass status post right ureteral stent, transurethral resection of bladder lesion and drainage of perivesical collection
Condition: Fair
Diet: As tolerated
Activity: As tolerated
Driving Restrictions: As prior to admission
Bathing Restrictions: None
Referrals:
Alvaro Moreno DO [Family Provider, Family Practice] - in less than 1 week
Attila Kan MD [Active, Urology]
Prescriptions:
New
acetaminophen 325 mg Tablet
650 mg PO Q4HPRN PRN (Reason: mild pain/ fever>100.5F) Qty: 0 0RF
Continued
metformin 500 mg Tablet
500 mg PO DAILY
amiloride-hydrochlorothiazide 5-50 mg Tablet
1 tab PO BID
metformin 500 mg Tablet
1,000 mg PO QPM
metoprolol succinate 50 mg tablet extended release 24 hr
50 mg PO HS
allopurinol 300 mg tablet
300 mg PO HS
Zepbound 7.5 mg/0.5 mL Pen Injector
7.5 mg SC WEEKLY
Discharge Orders:
Discharge Patient (As Directed); Ordered 06/15/25
Ordered By: Jose Ramon Duffy
Discharge Date and Time
Discharge Date/Time: 06/15/25 15:17
Print Language: NAMIBIAN
[2025-06-15 14:45] VITALS: BP 123/80
== END 2025-06-15 15:17 | disposition home or self-care (01) | DRG 661 ==
LOC: 2 SOUTH 12:34
PROVIDERS: Internal Medicine Cardiovascular Disease; ADMITTING PHYSICIAN Internal Medicine; CONSULT PHYSICIAN Urology; EMERGENCY PHYSICIAN Emergency Medicine; FAMILY PHYSICIAN Family Medicine
PROC: 0T768ZZ Dilation of Right Ureter, Via Natural or Artificial Opening Endoscopic (ICD-10-PCS; 2025-06-14)
PROC: 0TBB8ZZ Excision of Bladder, Via Natural or Artificial Opening Endoscopic (ICD-10-PCS; 2025-06-14)
DX: N13.6 Pyonephrosis (principal); E11.9 Type 2 diabetes mellitus without complications; E78.00 Pure hypercholesterolemia, unspecified; G47.33 Obstructive sleep apnea (adult) (pediatric); I10 Essential (primary) hypertension; K21.9 Gastro-esophageal reflux disease without esophagitis; Z79.84 Long term (current) use of oral hypoglycemic drugs; Z85.51 Personal history of malignant neoplasm of bladder; Z87.442 Personal history of urinary calculi; Z88.1 Allergy status to other antibiotic agents
CPT/HCPCS: 74018; 74176; 76000; 80053; 81003; 81015; 82962; 83036; 85025; 85610; 85730; 87077; 87086; 88307; 96360; 99284; C2617

== ENCOUNTER → 2025-06-21 17:12 | Outpatient (REF) | payer OTHER, SELFPAY | LOC: RAD 17:12 | PROVIDERS: ATTENDING PHYSICIAN Surgery; FAMILY PHYSICIAN Family Medicine | DX: C67.0 Malignant neoplasm of trigone of bladder (principal) | CPT/HCPCS: 71260; 74177; Q9967 ==

== ENCOUNTER 2025-06-23 21:41 | Emergency (ER) | payer OTHER, SELFPAY ==
[2025-06-23 21:41] VITALS: BMI 34.2
[2025-06-23 21:42] VITALS: BP 153/99
--- NOTE | 2025-06-23 23:15 | ED.GENMED ---
History of Present Illness
General
Chief Complaint: Catheter/Tube Problem
Source: patient
Exam Limitations: none
Time Seen by Provider: 06/23/25 22:14
Nursing documentation reviewed up to this point in time: agreed with
History of Present Illness
History of Present Illness:
59-year-old male with significant history of kidney dysfunction kidney stones bladder cancer who is presenting with concerns of decreased Hernandez catheter output. Denies significant symptoms at home otherwise. Has had the catheter in for over a
week. Does have follow-up tomorrow for this. No fevers.
Past History
Past History
ED Past Medical History: GERD and Other (Kidney stones, obstructive sleep apnea)
ED Past Surgical History: Urological
Patient has exhibited threatening behavior?: No
PSI?: No
Social History
Tobacco: Non-smoker
Alcohol: Occasional
Drug: None
Personal:
Living: with family
Employment: Employed
Family History
Family History: Other
Review of Systems
Review of Systems
Allergies reviewed?: Yes
All Other Systems: ROS reviewed and negative except as documented in HPI and ROS
Phy Exam
Physical Exam
Physical Exam:
GENERAL: Alert , in no apparent distress
EYE: pupils equal and reactive
NECK: Supple, no significant adenopathy.
ENT: o/p clr, mmm.
CARDIAC: Regular rate and rhythm .
LUNGS: Clear breath sounds bilaterally, no acute respiratory distress, no wheezes/rales/rhonchi
ABDOMEN: Soft, without focal tenderness, no r/g, no cvat
NEUROLOGICAL: Alert and oriented, no focal neuro deficits
SKIN: Warm and dry, skin intact.
MUSCULOSKELETAL: No edema, well perfused.
PSYCH: Normal and appropriate interaction.
Course
Vital Signs
Initial and Last Documented VS:
Initial Vital Signs
Temp Pulse Resp BP Pulse Ox
98.4 F 67 19 153/99 99
09/07/25 21:42 06/23/25 21:42 06/23/25 21:42 06/23/25 21:42 06/23/25 21:42
Last Documented Vital Signs
Temp Pulse Resp BP Pulse Ox
98.4 F 67 19 153/99 99
06/23/25 21:42 06/23/25 21:42 06/23/25 21:42 06/23/25 21:42 06/23/25 21:42
MDM/Problems Addressed
MDM/Problems Addressed:
59-year-old male presenting to the emergency department today with concerns of decreased urinary catheter output. Here this was flushed by the nurse and drained well. Bladder scan showing 70 mL. Patient with no ongoing symptoms advised for close
outpatient follow-up tomorrow. Return precautions given.
*Pulse Oximetry
SaO2: 99
Patient hypoxic: no (99)
*Critical Care Note
Total Time (30-74mins, 75-104mins- exclusive of procedures): Not Applicable
ED Attending Note
-
Portions of this chart may have been created with voice recognition software.� Occasional wrong word or��sound alike� substitutions may have occurred due to the inherent limitations of voice recognition software.
Discharge Plan
Departure
Patient Disposition: Home (Routine Discharge)
Date of Disposition: 06/23/25
Time of Disposition: 23:16
Patient with high blood pressure during this ER visit?: No
Condition: Good
Covid-19: Not Applicable
Discharge Problem:
Complication of Hernandez catheter
Instructions: How to Care for Your Hernandez Catheter, Male
Prescriptions:
No Action
metformin 500 mg Tablet
500 mg PO DAILY
amiloride-hydrochlorothiazide 5-50 mg Tablet
1 tab PO BID
metformin 500 mg Tablet
1,000 mg PO QPM
metoprolol succinate 50 mg tablet extended release 24 hr
50 mg PO HS
allopurinol 300 mg tablet
300 mg PO HS
Zepbound 7.5 mg/0.5 mL Pen Injector
7.5 mg SC WEEKLY
acetaminophen 325 mg Tablet
650 mg PO Q4HPRN PRN (Reason: mild pain/ fever>100.5F) Qty: 0 0RF
Referrals:
Alvaro Moreno DO [Family Provider, Family Practice]
Activity Restrictions/Additional Instructions:
You came to the emergency department today with concerns of your Hernandez catheter. Please follow-up tomorrow for your continued management. Return for any worsening, new or concerning symptoms.
Interventions
Interventions:
*Risk Screen - Suicide Last Done: 06/23/25 21:43
*General Assessment Last Done: 06/23/25 21:43
*Neglect/Abuse Screening Last Done: 06/23/25 21:43
*ED- Fall Risk Assessment Last Done: 06/23/25 22:53
*ED COVID-19 Vaccine History Last Done: 06/23/25 21:43
*Nursing Disposition Last Done: 06/23/25 23:03
AA-Gmuajy-Wfulysydso Assessment Last Done: 06/23/25 22:52
ED-Male Genitourinary Assessment Last Done: 06/23/25 22:52
Discharge Date and Time
Print Language: MALTESE
[2025-06-23 23:40] VITALS: BP 110/73
== END 2025-06-23 23:41 | disposition home or self-care (01) ==
LOC: EMR 21:41
PROVIDERS: EMERGENCY PHYSICIAN Emergency Medicine; FAMILY PHYSICIAN Family Medicine
DX: T83.9XXA Unspecified complication of genitourinary prosthetic device, implant and graft, initial encounter (principal); Y84.6 Urinary catheterization as the cause of abnormal reaction of the patient, or of later complication, without mention of misadventure at the time of the procedure; G47.33 Obstructive sleep apnea (adult) (pediatric); Z85.51 Personal history of malignant neoplasm of bladder
CPT/HCPCS: 99282

== ENCOUNTER → 2025-06-24 09:22 | Outpatient (REF) | payer OTHER, SELFPAY | LOC: RAD 09:22 | PROVIDERS: ATTENDING PHYSICIAN Surgery; FAMILY PHYSICIAN Family Medicine; REFERRING PHYSICIAN Surgery | DX: N32.3 Diverticulum of bladder (principal); C67.9 Malignant neoplasm of bladder, unspecified | CPT/HCPCS: 51600; 74430; Q9967 ==